=== PATIENT | female | born 1960 | race Caucasian/White ===

== ENCOUNTER 2017-08-11 19:50 | Emergency (ER) | payer OTHER ==
[~2017-08-11] VITALS: Ht 162.6 cm; Wt 63.0 kg
[2017-08-11 20:22] VITALS: Ht 162.6 cm; Wt 63.0 kg
[2017-08-11 23:08] LABS: BASOPHIL % 0.3 % (0-2); PLATELET COUNT 277 x10^3mcL (130-400); RED CELL DISTRIBUTION WIDTH 14.2 % (11.5-14.5)
[2017-08-11 23:21] LABS: CALCIUM 8.6 mg/dL (8.5-10.1); CARBON DIOXIDE 29.7 mmol/L (21-32); CHLORIDE SERUM 101 mmol/L (98-107); CREATININE SERUM 0.5 mg/dL (0.6-1.0); GFR1 > 60 mL/min; GLUCOSE SERUM 112 mg/dL (74-106); POTASSIUM SERUM 3.8 mmol/L (3.5-5.1); SODIUM SERUM 140 mmol/L (136-145)
[2017-08-11 23:32] LABS: ALBUMIN 3.6 g/dL (3.4-5.0); ALKALINE PHOSPHATASE 254 U/L (46-116); ALT/SGPT 26 U/L (14-59); AST/SGOT 20 U/L (15-37); BILIRUBIN TOTAL 0.73 mg/dL (0.20-1.00); FREE T4 0.72 ng/dL (0.76-1.46)
[2017-08-11 23:39] LABS: TOTAL PROTEIN, SERUM 8.9 g/dL (6.4-8.2)
[2017-08-12] MEDS ORDERED: ENALAPRIL MALEA20 MG PO (01:50)
[2017-08-12] MEDS ORDERED: METHIMAZOLE10 MG PO (01:51)
[2017-08-12] MEDS ORDERED: CARVEDILOL3.125 M1 PO (01:51)
[2017-08-12 06:50] VITALS: BP 144/75
== END 2017-08-12 06:40 | disposition short-term general hospital (02) ==
LOC: ED 19:50
PROVIDERS: Emergency Medicine
DX: R22.1 Localized swelling, mass and lump, neck (principal); E03.9 Hypothyroidism, unspecified; K13.79 Other lesions of oral mucosa; T78.3XXA Angioneurotic edema, initial encounter
CPT/HCPCS: 83880; 84439; J1200; J2543; J2930; J3490; J7050; P9016; P9059